=== PATIENT | female | born 1970 | race Caucasian/White ===

== ENCOUNTER → 2018-03-28 | Outpatient (CLI) | payer OTHER ==
--- NOTE | 2018-03-28 12:27 | Diagnostic Imaging Report ---
INDICATION: Routine screening. Comparison is made with prior mammogram from 03/24/2017 and 03/25/2016. 2-D and 3-D bilateral screening mammography was performed with CAD. Scattered fibroglandular densities are identified bilaterally. Nodular density upper-outer right breast appear stable most consistent with an intraparenchymal lymph node. No new mass or malignant appearing microcalcifications are seen. The axilla are unremarkable. IMPRESSION: BI-RADS category 2 No mammographic features suspicious for malignancy are identified. ACR BI-RADS Category 2: Benign findings. Result letter will be mailed to the patient. Note: At least 10% of breast cancer is not imaged by mammography. Dictated by: Dictated on workstation # [id number]
== END ==
LOC: RAD 07:33
PROVIDERS: ATTEND Obstetrics & Gynecology
DX: Z12.31 Encounter for screening mammogram for malignant neoplasm of breast (principal)
CPT/HCPCS: 77067

== ENCOUNTER → 2019-04-26 | Outpatient (CLI) | payer BC, MEDICARE, OTHER ==
--- NOTE | 2019-04-27 09:12 | Diagnostic Imaging Report ---
Digital mammogram. Indication: Bilateral screening The study was compared to the prior exams of 03/28/2018, 03/24/2017 and 03/25/2016. At this time there are no current complaints. The breasts are predominantly fatty. When compared to previous studies there does not appear to been any significant change. There is no primary or secondary sign of malignancy noted. The small benign-appearing nodular density in the upper outer aspect of the right breast seen previously is again evident and no different. Impression: There is no evidence of malignancy. ACR BI-RADS Category 1: Negative. Result letter will be mailed to the patient. Note: At least 10% of breast cancer is not imaged by mammography. Dictated by: Dictated on workstation # [id number]
== END ==
LOC: RAD 07:21
PROVIDERS: ATTEND Internal Medicine
DX: Z12.31 Encounter for screening mammogram for malignant neoplasm of breast (principal); Z78.0 Asymptomatic menopausal state
CPT/HCPCS: 77067

== ENCOUNTER → 2020-05-26 | Outpatient (CLI) | payer BC ==
--- NOTE | 2020-05-26 11:29 | Diagnostic Imaging Report ---
Digital mammogram. Indication: Bilateral screening This study was compared to the prior exams of 04/26/2019, 03/28/2018 and 03/24/2017. At this time there are no current complaints. The current study was also evaluated with a Computer Aided Detection (CAD) system. FINDINGS: There are scattered fibroglandular densities in both breasts which could obscure a lesion. Overall, there does not appear to have been any significant change when compared to the prior exam. No primary or secondary sign of malignancy is noted. IMPRESSION: There is no radiographic evidence for malignancy ACR BI-RADS Category 1: Negative. Result letter will be mailed to the patient. Note: At least 10% of breast cancer is not imaged by mammography. Dictated by: Dictated on workstation # [id number]
== END ==
LOC: RAD 07:30
PROVIDERS: ATTEND Nurse Practitioner Family
DX: Z12.31 Encounter for screening mammogram for malignant neoplasm of breast (principal)
CPT/HCPCS: 77063; 77067

== ENCOUNTER → 2021-06-11 | Outpatient (CLI) | payer BC ==
--- NOTE | 2021-06-11 10:06 | Diagnostic Imaging Report ---
INDICATION: Routine screening. Comparison is made with prior mammogram from 05/26/2020 and 04/26/2019. 2-D and 3-D bilateral screening mammography was performed with CAD. Scattered fibroglandular densities are identified bilaterally. The parenchymal pattern is stable. A benign nodular in the outer right breast is stable. No spiculated mass or malignant-appearing microcalcifications are seen. Axillae are unremarkable. IMPRESSION: BI-RADS Category 2 No mammographic features suspicious for malignancy are identified. ACR BI-RADS Category 2: Benign findings. Result letter will be mailed to the patient. Note: At least 10% of breast cancer is not imaged by mammography. Dictated by: Dictated on workstation # [id number]
== END ==
LOC: RAD 07:30
PROVIDERS: ATTEND Nurse Practitioner Family
DX: Z12.31 Encounter for screening mammogram for malignant neoplasm of breast (principal)
CPT/HCPCS: 77063; 77067

== ENCOUNTER 2022-02-20 15:35 | Emergency (ER) | payer BC ==
[~2022-02-20] VITALS: Ht 167.7 cm; Wt 100.0 kg
--- NOTE | 2022-02-20 15:53 | ED Lower Extremity ---
General Chief Complaint: Lower Extremity Stated Complaint: FALL/RIGHT KNEE INJURY History of Present Illness Date Seen by Provider: Feb 20, 2022 Time Seen by Provider: 15:37 Initial Comments 51-year-old female presents after right knee injury while she was walking on some bleachers at a football game and tripped. She states she fell down 3 bleachers. She has pain to the anterior portion of her right knee described as dull throbbing worse with movement and relieved somewhat with rest. She has not been able to bear any weight per her report though she does not have significant increase with range of motion on my exam. No other injuries. Allergies and Home Medications Patient Home Medication List Home Medication List Reviewed: Yes Review of Systems Constitutional: no symptoms reported EENTM: no symptoms reported Respiratory: no symptoms reported Cardiovascular: no symptoms reported Gastrointestinal: no symptoms reported Genitourinary: no symptoms reported Musculoskeletal: joint pain Skin: no symptoms reported Psychiatric/Neurological: No Symptoms Reported Past Rjrydea-Godyoe-Yymgey Hx Patient Social History Tobacco Use?: No Use of E-Cig and/or Vaping dev: No Substance use?: No Alcohol Use?: No Family Medical History Reviewed Nursing Family Hx No Pertinent Family Hx Physical Exam Vital Signs Capillary Refill : Height, Weight, BMI Height: '" Weight: lbs. oz. kg; BMI Method: General Appearance: WD/WN, no apparent distress HEENT: normal ENT inspection, TMs normal, pharynx normal Neck: non-tender, full range of motion, supple, normal inspection Cardiovascular: regular rate, rhythm, no edema, no gallop, no JVD, no murmur Respiratory: chest non-tender, lungs clear, normal breath sounds, no respiratory distress, no accessory muscle use Gastrointestinal: normal bowel sounds, non tender, soft, no organomegaly, no pulsatile mass Hips: bilateral hip non-tender, bilateral hip normal inspection, bilateral hip normal range of motion Legs: bilateral leg non-tender, bilateral leg normal inspection, bilateral leg normal range of motion Knees: left knee non-tender, left knee normal inspection, left knee normal range of motion; right knee pain (Tenderness palpation anterior right knee. No obvious swelling or deformity. Negative anterior posterior drawer varus valgus stress testing, Jenny and Kaylie. Neurovascular motor and sensory intact distally.) Ankles: bilateral ankle non-tender, bilateral ankle normal inspection, bilateral ankle normal range of motion Feet: bilateral foot non-tender, bilateral foot normal inspection, bilateral foot normal range of motion Neurologic/Tendon: normal sensation, normal motor functions, normal tendon functions, no evidence tendon injury Neurologic/Psychiatric: alert, oriented x 3 Skin: normal color, warm/dry Lymphatic: no adenopathy Progress/Results/Core Measures Results/Orders My Orders Orders - UMAIR BISHOP DO Knee, Right, 3 Views (02/20/22 15:46) Departure Impression Primary Impression: Right knee sprain Qualified Codes: S83.91XA - Sprain of unspecified site of right knee, initial encounter Disposition: HOME, SELF-CARE Condition: Stable Departure-Patient Inst. Referrals: EMILIO DELEON MD (PCP/Family) Primary Care Physician Patient Instructions: Knee Sprain (DC) Add. Discharge Instructions: Use crutches as needed. Ice the knee as needed and elevated when not in use. Use Motrin and Tylenol as needed for pain. Follow-up with your primary doctor should your symptoms persist after about a week. Return to the emergency department for any severe concerns All discharge instructions reviewed with patient and/or family. Voiced understanding. UMAIR BISHOP DO Feb 20, 2022 15:53
--- NOTE | 2022-02-20 16:03 | Diagnostic Imaging Report ---
INDICATION: Status post fall, pain. EXAMINATION: Right knee, 02/20/2022. FINDINGS: 3 views of the knee. There is a small suprapatellar effusion. A tiny age-indeterminate density is noted superimposed upon the medial joint compartment. This is of uncertain etiology. The remaining osseous structures intact. No dislocation. IMPRESSION: 1. Punctate linear density superimposed upon the medial joint compartment on one view only, age indeterminate. 2. Small joint effusion. Dictated by: Dictated on workstation # [id number]
[2022-02-20 16:05] VITALS: BP 126/74
== END 2022-02-20 16:07 | disposition home or self-care (01) ==
LOC: EDUNIT# 15:35 → ER 15:37
DX: S83.91XA Sprain of unspecified site of right knee, initial encounter (principal); W17.89XA Other fall from one level to another, initial encounter; Y92.321 Football field as the place of occurrence of the external cause
CPT/HCPCS: 73562

== ENCOUNTER → 2022-07-12 | Outpatient (CLI) | payer BC ==
--- NOTE | 2022-07-12 09:25 | Diagnostic Imaging Report ---
INDICATION: Routine screening. COMPARISON: 06/11/2021 and 05/26/2020. TECHNIQUE: 2D and 3D bilateral screening mammography was performed with CAD. FINDINGS: Scattered fibroglandular densities are identified bilaterally. The nodular density in the upper outer right breast is stable. No spiculated mass or malignant-appearing microcalcifications are seen. The axillae are unremarkable. IMPRESSION: No mammographic features suspicious for malignancy are identified. ACR BI-RADS Category 2: Benign findings. Result letter will be mailed to the patient. Note: At least 10% of breast cancer is not imaged by mammography. Dictated by: Dictated on workstation # [id number]
== END ==
LOC: RAD 07:12
PROVIDERS: ATTEND Family Medicine
DX: Z12.31 Encounter for screening mammogram for malignant neoplasm of breast (principal)
CPT/HCPCS: 77063; 77067